=== PATIENT | female | born 1945 | race African-American/Black ===

== ENCOUNTER 2021-09-14 19:24 | Inpatient (IN) | payer BC ==
[~2021-09-14] VITALS: Ht 167.6 cm; Wt 89.8 kg
[2021-09-14] MEDS ORDERED: DOPAMINE 400MG/250ML PREMIX 250 ML IV ONE (20:00)
[2021-09-14] MEDS ORDERED: DOBUTAMINE 250MG PREMIX 250 ML IV ONE (20:00)
[2021-09-14 20:14] LABS: HEMATOCRIT. 34.4 % (36.0-48.0); HEMOGLOBIN. 11.1 g/dL (12.0-16.0); MEAN CORPUSCULAR HEMOGLOBIN 26.6 pg (28.0-32.0); MEAN CORPUSCULAR VOLUME 82.3 fL (81.0-99.0); MEAN PLATELET VOLUME 9.7 fl (7.4-10.4); PLATELET 295 x1000/uL (130-400); RED BLOOD CELL COUNT 4.18 mill/uL (4.2-5.4); RED CELL DISTRIBUTION WIDTH 20.8 % (11.6-14.6)
[2021-09-14 20:21] LABS: CHLORIDE 114 mEq/L (98-107)
[2021-09-14 20:24] LABS: INR 1.3; PARTIAL THROMBOPLASTIN TIME 27.6 sec (23.4-31.0); PROTHROMBIN TIME 13.4 sec (9.6-11.0)
[2021-09-14 20:59] LABS: PLATELET ESTIMATE NORMAL
[2021-09-14] MEDS ORDERED: METOCLOPRAMIDE HCL 10MG/2ML VIAL IV ONE (22:15)
[2021-09-14] MEDS ORDERED: ACETAMINOPHEN 325MG TABLET PO ONE (22:15)
[2021-09-14] MEDS ORDERED: ACETAMINOPHEN 325MG TABLET PO PRN (23:15)
[2021-09-14] MEDS ORDERED: DOPAMINE 400MG/250ML PREMIX 250 ML IV PRN (23:27)
[2021-09-14] MEDS ORDERED: ENOXAPARIN 30MG/0.3ML SYR SUBCUT SCH (23:36)
[2021-09-14] MEDS ORDERED: DEXT 5%/0.45% NACL 500ML 500 ML IV ONE (23:45)
[2021-09-15] MEDS: ONDANSETRON HCL 4MG/2ML INJ IV PRN ×3 (02:18→21:07)
[2021-09-15 06:19] LABS: BASOPHILS % 0.8 % (0.0-2.0); EOSINOPHILS % 0.3 % (0.0-5.0); HEMATOCRIT. 36.1 % (36.0-48.0); HEMOGLOBIN. 11.8 g/dL (12.0-16.0); LYMPHOCYTES % 11.3 % (20.0-50.0); MEAN CORPUSCULAR HEMOGLOBIN 26.9 pg (28.0-32.0); MEAN CORPUSCULAR VOLUME 82.6 fL (81.0-99.0); MEAN PLATELET VOLUME 9.7 fl (7.4-10.4); MONOCYTES % 11.5 % (2.0-8.0); NEUTROPHILS % 76.1 % (40.0-76.0); PLATELET 308 x1000/uL (130-400); RED BLOOD CELL COUNT 4.37 mill/uL (4.2-5.4)
[2021-09-15 07:04] LABS: VITAMIN B12 SERUM > 2000.0 pg/mL (211-911)
[2021-09-15] MEDS: FAMOTIDINE 20MG/2ML VIAL IV SCH (09:28)
[2021-09-15] MEDS: DOPAMINE 400MG/250ML PREMIX 250 ML IV PRN (09:55)
[2021-09-15] MEDS ORDERED: NOREPINEPHRINE 8MG/250ML PMX 250 ML IV PRN (10:45)
[2021-09-15] MEDS ORDERED: LIDOCAINE HCL 1% 10 MG/ML 10ML VIAL ONE (12:58)
[2021-09-15] MEDS ORDERED: ENOXAPARIN 100MG/ML SYR SUBCUT SCH (13:00)
[2021-09-15] MEDS: MAGNESIUM/ALUMINUM HYDROXIDE/SIMETHICONE 30ML UDC PO PRN ×2 (17:46→21:07)
[2021-09-15] MEDS ORDERED: PIPERACILLIN/TAZ 3.375G PREMIX 50 ML IV NR (22:01)
[2021-09-15] MEDS ORDERED: PIPERACILLIN/TAZOBACTAM 3.375G in DEXT 5% WATER 50ML IV NR (22:30)
[2021-09-15] MEDS: DEXT 5%/0.45% NACL 1000ML 1,000 ML IV SCH (23:35)
[2021-09-15 23:40] VITALS: BP 124/60
[2021-09-15 23:48] VITALS: BP 124/60
[2021-09-16] VITALS (22 sets, daily range): BP systolic 81–131; BP diastolic 43–96
[2021-09-16] MEDS ORDERED: NALOXONE HCL 0.4MG/ML VIAL IV PRN (02:30)
[2021-09-16] MEDS: HYDROCODONE/ACETAMINOPHEN 5/325MG TABLET PO PRN ×2 (02:33→20:20)
[2021-09-16] MEDS ORDERED: *PATIENT'S OWN MEDICATION STORAGE XX SCH (04:00)
[2021-09-16] MEDS: ONDANSETRON HCL 4MG/2ML INJ IV PRN (04:20)
[2021-09-16] MEDS: METOPROLOL TARTRATE 25MG TABLET PO SCH ×2 (05:16→09:00)
[2021-09-16] MEDS: PIPERACILLIN/TAZOBACTAM 3.375G in DEXT 5% WATER 50ML IV SCH ×3 (05:44→21:20)
[2021-09-16] MEDS: DEXT 5%/0.45% NACL 1000ML 1,000 ML IV SCH ×2 (06:06→12:48)
[2021-09-16] MEDS ORDERED: DILT180C85 PO (08:18)
[2021-09-16] MEDS ORDERED: FURO20TA4 PO (08:18)
[2021-09-16] MEDS ORDERED: HYDR-4001 PO (08:18)
[2021-09-16] MEDS ORDERED: FERR324T17 PO (08:18)
[2021-09-16] MEDS ORDERED: ALLO100T PO (08:18)
[2021-09-16] MEDS ORDERED: ATOR-2 PO (08:18)
[2021-09-16] MEDS ORDERED: POTA-9 PO (08:18)
[2021-09-16] MEDS ORDERED: PANT40TA51 PO (08:18)
[2021-09-16] MEDS ORDERED: METO-411 PO (08:18)
[2021-09-16] MEDS ORDERED: APIX5TAB PO (08:18)
[2021-09-16 08:51] LABS: MEAN CORPUSCULAR HEMOGLOBIN 27.3 pg (28.0-32.0); MEAN CORPUSCULAR VOLUME 85.4 fL (81.0-99.0); MEAN PLATELET VOLUME 10.4 fl (7.4-10.4); PLATELET 219 x1000/uL (130-400); RED BLOOD CELL COUNT 2.98 mill/uL (4.2-5.4); RED CELL DISTRIBUTION WIDTH 21.4 % (11.6-14.6)
[2021-09-16 08:58] LABS: HEMATOCRIT. 25.5 % (36.0-48.0); HEMOGLOBIN. 8.1 g/dL (12.0-16.0)
[2021-09-16 09:44] LABS: BG BASE EXCESS -2.2 mmol/L (-2.0-2.0); BG CARBOXYHEMOGLOBIN 0.2 % (0.5-1.5); BG DEOXYHEMOGLOBIN 2.3 % (0.0-5.0); BG FRACTION INSPIRED OXYGEN 21; BG HCO3 ACT 21.7 mmol/L (22.0-26.0); BG METHEMOGLOBIN 0.4 % (0.0-1.5); BG OXYGEN SATURATION 97.7 % (92.0-98.5); BG OXYHEMOGLOBIN 97.1 % (94.0-97.0); BG PCO2 33.5 mmHg (35.0-45.0); BG PO2 116.8 mmHg (75.0-100.0); BG SAMPLE SITE LEFT RADIAL; BG TOTAL HEMOGLOBIN 8.3 g/dL (12.0-18.0); BG VENT MODE ROOM AIR
[2021-09-16] MEDS: FAMOTIDINE 20MG/2ML VIAL IV SCH (09:45)
[2021-09-16] MEDS ORDERED: DOPAMINE 400MG/250ML PREMIX 250 ML IV ONE (10:00)
[2021-09-16] MEDS: DOPAMINE 400MG/250ML PREMIX 250 ML IV PRN ×2 (10:16→21:21)
[2021-09-16] MEDS: NOREPINEPHRINE 8 MG in DEXTROSE 5% WATER 250 ML IV PRN ×2 (11:56→21:49)
[2021-09-16 18:42] LABS: CLARITY URINE CLOUDY (CLEAR); COLOR URINE YELLOW (YELLOW); KETONES URINE TRACE (NEGATIVE); LEUKOCYTE ESTERASE URINE 2+ (NEGATIVE); NITRITE URINE NEGATIVE (NEGATIVE); OCCULT BLOOD URINE 3+ (NEGATIVE); PH URINE 5.5 (4.5-8.0); PROTEIN URINE 3+ (NEGATIVE)
[2021-09-16 18:54] LABS: PLATELET ESTIMATE NORMAL
[2021-09-16] MEDS: FLUCONAZOLE 200 MG/100ML BAG 100 ML IV SCH (18:56)
[2021-09-16 21:15] LABS: HEMATOCRIT 32.6 % (36.0-48.0); HEMOGLOBIN 10.8 g/dL (12.0-16.0)
[2021-09-17] VITALS (80 sets, daily range): BP systolic 58–138; BP diastolic 20–102
[2021-09-17] MEDS ORDERED: FLUCONAZOLE 200MG/100ML PREMIX IV SCH (01:00)
[2021-09-17] MEDS: HYDROCODONE/ACETAMINOPHEN 5/325MG TABLET PO PRN ×3 (02:29→16:52)
[2021-09-17 05:06] LABS: BASOPHILS % 0.2 % (0.0-2.0); HEMATOCRIT. 32.1 % (36.0-48.0); HEMOGLOBIN. 10.5 g/dL (12.0-16.0); LYMPHOCYTES % 9.9 % (20.0-50.0); MEAN CORPUSCULAR HEMOGLOBIN 27.5 pg (28.0-32.0); MEAN PLATELET VOLUME 10.1 fl (7.4-10.4); MONOCYTES % 6.8 % (2.0-8.0); NEUTROPHILS % 83.1 % (40.0-76.0); PLATELET 202 x1000/uL (130-400); RED BLOOD CELL COUNT 3.82 mill/uL (4.2-5.4); RED CELL DISTRIBUTION WIDTH 18.7 % (11.6-14.6)
[2021-09-17 05:11] LABS: CHLORIDE 105 mEq/L (98-107)
[2021-09-17 05:20] LABS: PHOSPHORUS 4.9 mg/dL (2.5-4.9)
[2021-09-17] MEDS ORDERED: PHENYLEPHRINE 50 MG in DEXT 5% WATER 245 ML IV PRN (08:30)
[2021-09-17] MEDS: PIPERACILLIN/TAZOBACTAM 3.375G in DEXT 5% WATER 50ML IV SCH ×2 (08:48→21:53)
[2021-09-17] MEDS: FAMOTIDINE 20MG/2ML VIAL IV SCH (08:48)
[2021-09-17] MEDS: DEXT 5%/0.45% NACL 1000ML 1,000 ML IV SCH (09:32)
[2021-09-17] MEDS: ONDANSETRON HCL 4MG/2ML INJ IV PRN (10:51)
[2021-09-17] MEDS ORDERED: AMIODARONE HCL 150 MG in DEXT 5% WATER 100 ML IV NR (11:30)
[2021-09-17] MEDS: AMIODARONE HCL 900 MG in DEXT 5% WATER 482 ML IV SCH (12:49)
[2021-09-17] MEDS: FLUCONAZOLE 200 MG/100ML BAG 100 ML IV SCH (16:51)
[2021-09-17] MEDS ORDERED: DIPHENHYDRAMINE 25MG CAPSULE PO PRN (18:00)
[2021-09-17] MEDS: SODIUM CHLORIDE 0.9% 1,000 ML IV SCH (18:59)
[2021-09-17] MEDS: MORPHINE SULFATE 2 MG/ML CPJ (NOT FOR IM USE) IV PRN ×2 (19:00→22:29)
[2021-09-17 19:14] LABS: HEPATITIS B SURFACE AB 416.5 mIU/mL
[2021-09-17 19:25] LABS: HEPATITIS B SURFACE ANTIGEN NEGATIVE
[2021-09-18] VITALS (101 sets, daily range): BP systolic 69–135; BP diastolic 44–102
[2021-09-18] MEDS: SODIUM CHLORIDE 0.9% 1,000 ML IV SCH ×2 (01:40→09:16)
[2021-09-18] MEDS: MORPHINE SULFATE 2 MG/ML CPJ (NOT FOR IM USE) IV PRN ×4 (04:05→18:25)
[2021-09-18 05:35] LABS: CHLORIDE 103 mEq/L (98-107); EOSINOPHILS % 0.2 % (0.0-5.0)
[2021-09-18 05:41] LABS: PHOSPHORUS 5.3 mg/dL (2.5-4.9)
[2021-09-18 05:48] LABS: BASOPHILS % 0.2 % (0.0-2.0); HEMATOCRIT. 26.7 % (36.0-48.0); HEMOGLOBIN. 8.9 g/dL (12.0-16.0); LYMPHOCYTES % 14.9 % (20.0-50.0); MEAN CORPUSCULAR HEMOGLOBIN 27.7 pg (28.0-32.0); MEAN CORPUSCULAR VOLUME 83.6 fL (81.0-99.0); MEAN PLATELET VOLUME 10.2 fl (7.4-10.4); MONOCYTES % 8.5 % (2.0-8.0); NEUTROPHILS % 76.2 % (40.0-76.0); PLATELET 166 x1000/uL (130-400); RED CELL DISTRIBUTION WIDTH 19.5 % (11.6-14.6)
[2021-09-18] MEDS ORDERED: LIDOCAINE HCL 1% 10 MG/ML 10ML VIAL ONE (08:39)
[2021-09-18] MEDS: PIPERACILLIN/TAZOBACTAM 3.375G in DEXT 5% WATER 50ML IV SCH ×2 (08:46→21:07)
[2021-09-18] MEDS: PANTOPRAZOLE SODIUM 40 MG/VIAL IV SCH (08:46)
[2021-09-18] MEDS: AMIODARONE HCL 900 MG in DEXT 5% WATER 482 ML IV SCH (16:07)
[2021-09-18] MEDS: FLUCONAZOLE 200 MG/100ML BAG 100 ML IV SCH (18:25)
[2021-09-19] VITALS (99 sets, daily range): BP systolic 63–146; BP diastolic 28–93
[2021-09-19] MEDS: MORPHINE SULFATE 2 MG/ML CPJ (NOT FOR IM USE) IV PRN ×2 (02:00→22:21)
[2021-09-19] MEDS: SODIUM CHLORIDE 0.9% 1,000 ML IV SCH (04:58)
[2021-09-19 05:51] LABS: BASOPHILS % 0.3 % (0.0-2.0); EOSINOPHILS % 0.6 % (0.0-5.0); HEMATOCRIT. 25.4 % (36.0-48.0); HEMOGLOBIN. 8.5 g/dL (12.0-16.0); LYMPHOCYTES % 13.7 % (20.0-50.0); MEAN CORPUSCULAR HEMOGLOBIN 28.2 pg (28.0-32.0); MEAN CORPUSCULAR VOLUME 84.3 fL (81.0-99.0); MEAN PLATELET VOLUME 9.9 fl (7.4-10.4); NEUTROPHILS % 76.4 % (40.0-76.0); PLATELET 164 x1000/uL (130-400); RED BLOOD CELL COUNT 3.02 mill/uL (4.2-5.4); RED CELL DISTRIBUTION WIDTH 19.4 % (11.6-14.6)
[2021-09-19 06:07] LABS: PHOSPHORUS 5.3 mg/dL (2.5-4.9)
[2021-09-19] MEDS: PIPERACILLIN/TAZOBACTAM 3.375G in DEXT 5% WATER 50ML IV SCH ×2 (09:16→21:30)
[2021-09-19] MEDS: PANTOPRAZOLE SODIUM 40 MG/VIAL IV SCH (09:16)
[2021-09-19] MEDS ORDERED: SODIUM POLYSTYRENE SULFONATE 15 G/60 ML BOT PO NR (09:45)
[2021-09-19] MEDS: ONDANSETRON HCL 4MG/2ML INJ IV PRN (14:46)
[2021-09-19] MEDS: FLUCONAZOLE 200 MG/100ML BAG 100 ML IV SCH (17:01)
[2021-09-19] MEDS: AMIODARONE HCL 200 MG TABLET PO SCH (21:30)
[2021-09-20] VITALS (45 sets, daily range): BP systolic 78–152; BP diastolic 33–84
[2021-09-20 05:53] LABS: BASOPHILS % 0.3 % (0.0-2.0); EOSINOPHILS % 0.3 % (0.0-5.0); LYMPHOCYTES % 7.8 % (20.0-50.0); MEAN CORPUSCULAR HEMOGLOBIN 28.2 pg (28.0-32.0); MEAN CORPUSCULAR VOLUME 84.9 fL (81.0-99.0); MEAN PLATELET VOLUME 9.5 fl (7.4-10.4); MONOCYTES % 9.8 % (2.0-8.0); NEUTROPHILS % 81.8 % (40.0-76.0); PLATELET 135 x1000/uL (130-400); RED BLOOD CELL COUNT 2.39 mill/uL (4.2-5.4); RED CELL DISTRIBUTION WIDTH 19.8 % (11.6-14.6)
[2021-09-20 06:27] LABS: PHOSPHORUS 4.5 mg/dL (2.5-4.9)
[2021-09-20 06:32] LABS: HEMATOCRIT. 20.3 % (36.0-48.0); HEMOGLOBIN. 6.7 g/dL (12.0-16.0)
[2021-09-20 07:26] LABS: BASOPHILS % 0.1 % (0.0-2.0); EOSINOPHILS % 0.5 % (0.0-5.0); LYMPHOCYTES % 8.5 % (20.0-50.0); MEAN CORPUSCULAR HEMOGLOBIN 28.6 pg (28.0-32.0); MEAN CORPUSCULAR VOLUME 85.5 fL (81.0-99.0); MEAN PLATELET VOLUME 9.3 fl (7.4-10.4); MONOCYTES % 10.1 % (2.0-8.0); NEUTROPHILS % 80.8 % (40.0-76.0); PLATELET 138 x1000/uL (130-400); RED CELL DISTRIBUTION WIDTH 19.4 % (11.6-14.6)
[2021-09-20 07:42] LABS: HEMATOCRIT. 20.5 % (36.0-48.0); HEMOGLOBIN. 6.9 g/dL (12.0-16.0)
[2021-09-20 08:00] LABS: PHOSPHORUS 4.5 mg/dL (2.5-4.9)
[2021-09-20] MEDS ORDERED: ACETAMINOPHEN 325MG TABLET PO SCH (08:15)
[2021-09-20] MEDS: PIPERACILLIN/TAZOBACTAM 3.375G in DEXT 5% WATER 50ML IV SCH ×2 (08:56→21:14)
[2021-09-20] MEDS: AMIODARONE HCL 200 MG TABLET PO SCH ×2 (08:56→21:14)
[2021-09-20] MEDS: PANTOPRAZOLE SODIUM 40 MG/VIAL IV SCH (08:56)
[2021-09-20] MEDS: MORPHINE SULFATE 2 MG/ML CPJ (NOT FOR IM USE) IV PRN (12:26)
[2021-09-20] MEDS: FLUCONAZOLE 200 MG/100ML BAG 100 ML IV SCH (16:40)
[2021-09-21] VITALS (9 sets, daily range): BP systolic 100–118; BP diastolic 53–68
[2021-09-21 06:29] LABS: CHLORIDE 106 mEq/L (98-107)
[2021-09-21 06:36] LABS: PHOSPHORUS 4.5 mg/dL (2.5-4.9)
[2021-09-21 06:47] LABS: BASOPHILS % 0.3 % (0.0-2.0); EOSINOPHILS % 2.5 % (0.0-5.0); HEMATOCRIT. 24.4 % (36.0-48.0); HEMOGLOBIN. 8.3 g/dL (12.0-16.0); LYMPHOCYTES % 11.1 % (20.0-50.0); MEAN CORPUSCULAR HEMOGLOBIN 29.2 pg (28.0-32.0); MEAN CORPUSCULAR VOLUME 85.4 fL (81.0-99.0); MEAN PLATELET VOLUME 9.8 fl (7.4-10.4); MONOCYTES % 10.4 % (2.0-8.0); NEUTROPHILS % 75.7 % (40.0-76.0); PLATELET 123 x1000/uL (130-400); RED BLOOD CELL COUNT 2.86 mill/uL (4.2-5.4); RED CELL DISTRIBUTION WIDTH 18.7 % (11.6-14.6)
[2021-09-21] MEDS: AMIODARONE HCL 200 MG TABLET PO SCH ×2 (10:14→20:49)
[2021-09-21] MEDS: FAMOTIDINE 20MG/2ML VIAL IV SCH (10:14)
[2021-09-21] MEDS: DOCUSATE SODIUM 100MG CAPSULE PO PRN (17:30)
[2021-09-21] MEDS: FLUCONAZOLE 200 MG/100ML BAG 100 ML IV SCH (17:30)
[2021-09-22] VITALS (7 sets, daily range): BP systolic 120–137; BP diastolic 60–80
[2021-09-22] MEDS: FAMOTIDINE 20MG/2ML VIAL IV SCH (09:34)
[2021-09-22] MEDS: DOCUSATE SODIUM 100MG CAPSULE PO PRN (09:34)
[2021-09-22] MEDS: AMIODARONE HCL 200 MG TABLET PO SCH ×2 (09:34→09:42)
[2021-09-22 09:39] LABS: BASOPHILS % 0.5 % (0.0-2.0); EOSINOPHILS % 2.9 % (0.0-5.0); HEMATOCRIT. 25.2 % (36.0-48.0); HEMOGLOBIN. 8.5 g/dL (12.0-16.0); MEAN CORPUSCULAR HEMOGLOBIN 29.1 pg (28.0-32.0); MEAN CORPUSCULAR VOLUME 85.8 fL (81.0-99.0); MEAN PLATELET VOLUME 9.5 fl (7.4-10.4); MONOCYTES % 8.9 % (2.0-8.0); NEUTROPHILS % 74.7 % (40.0-76.0); PLATELET 130 x1000/uL (130-400); RED BLOOD CELL COUNT 2.93 mill/uL (4.2-5.4)
[2021-09-23] MEDS ORDERED: FAMOTIDINE 20MG TABLET PO SCH (09:00)
== END 2021-09-22 23:06 | disposition short-term general hospital (02) | DRG 871 ==
LOC: ER 19:24 → MICUSO 21:57 → EDBEDREQ 22:06 → EDBEDREQTM 22:06 → 3WST 09-15 22:06 → MICUSO 09-17 00:23 → 8WST 09-20 11:00
PROVIDERS: ADMIT Internal Medicine Pulmonary Disease; ATTEND Internal Medicine Pulmonary Disease
PROC: 5A2204Z Restoration of Cardiac Rhythm, Single (ICD-10-PCS; 2021-09-14)
PROC: 5A12012 Performance of Cardiac Output, Single, Manual (ICD-10-PCS; 2021-09-14)
PROC: 02HV33Z Insertion of Infusion Device into Superior Vena Cava, Percutaneous Approach (ICD-10-PCS; principal; 2021-09-15)
PROC: B548ZZA Ultrasonography of Superior Vena Cava, Guidance (ICD-10-PCS; 2021-09-15)
PROC: 30233N1 Transfusion of Nonautologous Red Blood Cells into Peripheral Vein, Percutaneous Approach (ICD-10-PCS; 2021-09-16)
PROC: 02HV33Z Insertion of Infusion Device into Superior Vena Cava, Percutaneous Approach (ICD-10-PCS; 2021-09-18)
PROC: B548ZZA Ultrasonography of Superior Vena Cava, Guidance (ICD-10-PCS; 2021-09-18)
PROC: 5A1D70Z Performance of Urinary Filtration, Intermittent, Less than 6 Hours Per Day (ICD-10-PCS; 2021-09-18)
DX: A41.9 Sepsis, unspecified organism (principal); N17.0 Acute kidney failure with tubular necrosis; I50.33 Acute on chronic diastolic (congestive) heart failure; R57.8 Other shock; E44.1 Mild protein-calorie malnutrition; E87.0 Hyperosmolality and hypernatremia; I13.0 Hypertensive heart and chronic kidney disease with heart failure and stage 1 through stage 4 chronic kidney disease, or unspecified chronic kidney disease; I48.11 Longstanding persistent atrial fibrillation; N13.6 Pyonephrosis; E78.5 Hyperlipidemia, unspecified; I73.9 Peripheral vascular disease, unspecified; N18.32 Chronic kidney disease, stage 3b; E87.8 Other disorders of electrolyte and fluid balance, not elsewhere classified; D64.9 Anemia, unspecified; E78.00 Pure hypercholesterolemia, unspecified; Z96.643 Presence of artificial hip joint, bilateral; G62.9 Polyneuropathy, unspecified; K21.9 Gastro-esophageal reflux disease without esophagitis; M19.90 Unspecified osteoarthritis, unspecified site; R73.03 Prediabetes; R74.01 Elevation of levels of liver transaminase levels; F03.90 Unspecified dementia, unspecified severity, without behavioral disturbance, psychotic disturbance, mood disturbance, and anxiety; M10.9 Gout, unspecified; I49.5 Sick sinus syndrome; S91.109A Unspecified open wound of unspecified toe(s) without damage to nail, initial encounter; Z96.653 Presence of artificial knee joint, bilateral; X58.XXXA Exposure to other specified factors, initial encounter; Z20.822 Contact with and (suspected) exposure to COVID-19; N94.89 Other specified conditions associated with female genital organs and menstrual cycle; Z79.899 Other long term (current) drug therapy; Z79.01 Long term (current) use of anticoagulants; Z86.73 Personal history of transient ischemic attack (TIA), and cerebral infarction without residual deficits; Z82.49 Family history of ischemic heart disease and other diseases of the circulatory system; Z90.710 Acquired absence of both cervix and uterus; Y93.89 Activity, other specified; Y92.89 Other specified places as the place of occurrence of the external cause; Y99.8 Other external cause status; Z88.8 Allergy status to other drugs, medicaments and biological substances; Z68.32 Body mass index [BMI] 32.0-32.9, adult; R19.09 Other intra-abdominal and pelvic swelling, mass and lump
CPT/HCPCS: 36415; 36556; 36600; 71045; 74176; 76857; 76937; 80048; 80053; 81003; 82375; 82378; 82607; 82805; 83036; 83540; 83550; 83605; 83735; 83880; 84100; 84443; 84484; 85014; 85018; 85025; 86705; 86706; 86709; 86803; 86850; 86900; 86920; 87340; 87426; 93005; 93306; 93923; 93970; 97162; 99291; C1725; C1752; C9113; J0282; J1250; J1265; J1450; J1650; J2270; J2370; J2405; J2543; J2765; J3490; J7030; J7040; J7060; P9016; A4315

== ENCOUNTER 2023-01-11 20:03 | Inpatient (IN) | payer BC, OTHER ==
[~2023-01-11] VITALS: Ht 167.6 cm; Wt 83.7 kg
[~2023-01-11 20:03] MED LIST: ALLO100T PO; APIX5TAB PO; ATOR-2 PO; DILT180C85 PO; FERR324T17 PO; FURO20TA4 PO; HYDR-4001 PO; METO-411 PO; PANT40TA51 PO; POTA-203 PO
[2023-01-11] MEDS ORDERED: PIPERACILLIN/TAZ 3.375G PREMIX 50 ML IV ONE (20:15)
[2023-01-11] MEDS ORDERED: SODIUM CHLORIDE 0.9% 1000ML BAG (SEPSIS BOLUS) IV ONE (20:15)
[2023-01-11] MEDS ORDERED: VANCOMYCIN 1G PREMIX 200 ML IV ONE (20:15)
[2023-01-11] MEDS ORDERED: ATROPINE SULFATE 0.1MG/ML 10ML DISP.SYRIN IV ONE (20:45)
[2023-01-11] MEDS ORDERED: VANCOMYCIN 1G PREMIX 200 ML IV NR (21:15)
[2023-01-11] MEDS ORDERED: PIPERACILLIN/TAZ 3.375G PREMIX 50 ML IV NR (21:15)
[2023-01-11] MEDS ORDERED: DOPAMINE 400MG/250ML PREMIX 250 ML IV ONE (21:15)
[2023-01-11 21:35] LABS: BASOPHILS % 0.5 % (0.0-2.0); EOSINOPHILS % 4.3 % (0.0-5.0); HEMATOCRIT. 39.5 % (36.0-48.0); HEMOGLOBIN. 12.5 g/dL (12.0-16.0); MEAN CORPUSCULAR HEMOGLOBIN 28.4 pg (28.0-32.0); MEAN CORPUSCULAR VOLUME 89.4 fL (81.0-99.0); MONOCYTES % 12.2 % (2.0-8.0); PLATELET 231 x1000/uL (130-400); RED BLOOD CELL COUNT 4.41 mill/uL (4.2-5.4); RED CELL DISTRIBUTION WIDTH 16.7 % (11.6-14.6)
[2023-01-11 21:40] LABS: CHLORIDE 108 mEq/L (98-107)
[2023-01-11 21:42] LABS: INR 1.3; PARTIAL THROMBOPLASTIN TIME 34.7 sec (23.4-31.0); PROTHROMBIN TIME 13.5 sec (9.6-11.0)
[2023-01-11] MEDS: DOPAMINE 400MG/250ML PREMIX 250 ML IV SCH (22:11)
[2023-01-11 23:32] LABS: CLARITY URINE CLOUDY (CLEAR); COLOR URINE YELLOW (YELLOW); KETONES URINE NEGATIVE (NEGATIVE); LEUKOCYTE ESTERASE URINE 3+ (NEGATIVE); NITRITE URINE POSITIVE (NEGATIVE); OCCULT BLOOD URINE 2+ (NEGATIVE); PH URINE 5.5 (4.5-8.0); PROTEIN URINE 1+ (NEGATIVE); UROBILINOGEN URINE 0.2 E.U./dL (0.2-1.0)
[2023-01-12] VITALS (57 sets, daily range): BP systolic 80–182; BP diastolic 42–84
[2023-01-12] MEDS ORDERED: ONDANSETRON HCL 4MG/2ML INJ IV PRN (05:00)
[2023-01-12] MEDS ORDERED: GUAIFENESIN 200MG/10ML SUGAR FREE UDC PO PRN (05:00)
[2023-01-12] MEDS ORDERED: MAGNESIUM/ALUMINUM HYDROXIDE/SIMETHICONE 30ML UDC PO PRN (05:00)
[2023-01-12] MEDS ORDERED: ACETAMINOPHEN 325MG TABLET PO PRN (05:00)
[2023-01-12] MEDS ORDERED: IPRATROPIUM/ALBUTEROL 0.5-3(2.5)MG/3ML NEB NEB PRN (05:00)
[2023-01-12] MEDS ORDERED: DOCUSATE SODIUM 100MG CAPSULE PO PRN (05:00)
[2023-01-12] MEDS: ACETAMINOPHEN 325MG TABLET PO PRN ×2 (06:07→22:57)
[2023-01-12] MEDS: PIPERACILLIN/TAZOBACTAM 3.375 G in DEXTROSE 5% WATER 50 ML IV SCH ×2 (06:12→14:08)
[2023-01-12] MEDS: SODIUM CHLORIDE 0.9% 1,000 ML IV SCH ×2 (06:33→22:20)
[2023-01-12] MEDS: POTASSIUM CHLORIDE 10MEQ TABLET SR PO SCH (09:00)
[2023-01-12] MEDS: GABAPENTIN 300MG CAPSULE PO SCH ×2 (09:00→16:41)
[2023-01-12] MEDS ORDERED: APIXABAN 5 MG TABLET PO SCH (09:00)
[2023-01-12] MEDS: FUROSEMIDE 20MG TABLET PO SCH (10:02)
[2023-01-12] MEDS: DOPAMINE 400MG/250ML PREMIX 250 ML IV SCH (10:33)
[2023-01-12 12:27] LABS: HEMATOCRIT 38.8 % (36.0-48.0); HEMOGLOBIN 12.7 g/dL (12.0-16.0); MEAN CORPUSCULAR VOLUME 88.9 fL (81.0-99.0); PLATELET 230 x1000/uL (130-400); RED BLOOD CELL COUNT 4.37 mill/uL (4.2-5.4); RED CELL DISTRIBUTION WIDTH 16.7 % (11.6-14.6)
[2023-01-12 12:50] LABS: CHLORIDE 107 mEq/L (98-107)
[2023-01-12 12:59] LABS: PHOSPHORUS 3.7 mg/dL (2.5-4.9)
[2023-01-12 13:19] LABS: VITAMIN B12 SERUM >2000 pg/mL pg/mL (211-911)
[2023-01-12] MEDS: FAMOTIDINE 20MG/2ML VIAL IV SCH (14:08)
[2023-01-12] MEDS: ALLOPURINOL 100 MG TABLET PO SCH (16:38)
[2023-01-12] MEDS: ATORVASTATIN CALCIUM 40MG TABLET PO SCH (17:00)
[2023-01-12] MEDS: FERROUS SULFATE 325MG TABLET PO SCH (22:20)
[2023-01-13] VITALS (68 sets, daily range): BP systolic 63–167; BP diastolic 14–127
[2023-01-13] MEDS: PIPERACILLIN/TAZOBACTAM 3.375 G in DEXTROSE 5% WATER 50 ML IV SCH ×4 (01:16→22:35)
[2023-01-13] MEDS ORDERED: VANCOMYCIN 750MG PREMIX 150 ML IV SCH ×3 (04:00→10:00)
[2023-01-13 06:30] LABS: BASOPHILS % 0.9 % (0.0-2.0); HEMATOCRIT. 39.7 % (36.0-48.0); MEAN CORPUSCULAR HEMOGLOBIN 28.8 pg (28.0-32.0); MEAN CORPUSCULAR VOLUME 88.3 fL (81.0-99.0); MEAN PLATELET VOLUME 9.5 fl (7.4-10.4); MONOCYTES % 13.6 % (2.0-8.0); NEUTROPHILS % 54.5 % (40.0-76.0); PLATELET 231 x1000/uL (130-400); RED CELL DISTRIBUTION WIDTH 16.9 % (11.6-14.6)
[2023-01-13 06:36] LABS: CHLORIDE 108 mEq/L (98-107)
[2023-01-13 06:56] LABS: HDL CHOLESTEROL 91 mg/dL (40-59); LDL CHOLESTEROL 71 mg/dL (5-100); T4 FREE 1.15 ng/dL (0.76-1.46)
[2023-01-13] MEDS ORDERED: DOPAMINE 400MG/250ML PREMIX 250 ML IV PRN (07:45)
[2023-01-13] MEDS ORDERED: GENTAMICIN 80MG in SODIUM CHLORIDE IRRIG SOLN 500ML IR NR (08:30)
[2023-01-13] MEDS: GABAPENTIN 300MG CAPSULE PO SCH ×2 (09:00→16:03)
[2023-01-13] MEDS: FAMOTIDINE 20MG/2ML VIAL IV SCH (09:21)
[2023-01-13] MEDS: ALLOPURINOL 100 MG TABLET PO SCH (09:22)
[2023-01-13] MEDS: POTASSIUM CHLORIDE 10MEQ TABLET SR PO SCH (09:22)
[2023-01-13] MEDS: SODIUM CHLORIDE 0.9% 1,000 ML IV SCH ×2 (09:22→22:36)
[2023-01-13] MEDS: FUROSEMIDE 20MG TABLET PO SCH (09:22)
[2023-01-13] MEDS ORDERED: GENTAMICIN/NS IRRIGATION 500 ML IR NR (10:45)
[2023-01-13] MEDS ORDERED: GENTAMICIN SULF 40MG/ML 2ML VIAL ONE (11:39)
[2023-01-13] MEDS ORDERED: IODIXANOL 320MG/ML 100 ML BOTTLE IV ONE (12:33)
[2023-01-13] MEDS ORDERED: FENTANYL CITRATE/PF 50MCG/ML 2ML VIAL ONE ×2 (12:59→13:57)
[2023-01-13] MEDS ORDERED: MIDAZOLAM HCL 2 MG/2 ML VIAL ONE (12:59)
[2023-01-13] MEDS ORDERED: CEFAZOLIN SODIUM 1000MG/VIAL ONE (13:07)
[2023-01-13] MEDS ORDERED: CEFAZOLIN 1000MG PREMIX 50 ML IV ONE ×2 (13:08→14:24)
[2023-01-13] MEDS ORDERED: LIDOCAINE HCL 1% 20ML VIAL (Pyxis) INJ ONE ×2 (13:13)
[2023-01-13] MEDS ORDERED: HYDROCODONE/ACETAMINOPHEN 7.5/325MG TABLET PO PRN (15:45)
[2023-01-13] MEDS: ACETAMINOPHEN 325MG TABLET PO PRN (15:58)
[2023-01-13] MEDS ORDERED: NALOXONE HCL 0.4MG/ML VIAL IV PRN (16:00)
[2023-01-13] MEDS: ATORVASTATIN CALCIUM 40MG TABLET PO SCH (16:03)
[2023-01-13] MEDS: HYDROCODONE/ACETAMINOPHEN 7.5/325MG TABLET PO PRN (16:48)
[2023-01-13] MEDS: FERROUS SULFATE 325MG TABLET PO SCH (21:19)
[2023-01-13] MEDS ORDERED: CEFAZOLIN SODIUM 1000MG/VIAL IV SCH (22:00)
[2023-01-13] MEDS: CLOTRIMAZOLE 1% CREAM 15GM TOP SCH (22:36)
[2023-01-14] VITALS (46 sets, daily range): BP systolic 92–164; BP diastolic 27–139
[2023-01-14] MEDS: HYDROCODONE/ACETAMINOPHEN 7.5/325MG TABLET PO PRN ×2 (00:37→20:37)
[2023-01-14] MEDS: PIPERACILLIN/TAZOBACTAM 3.375 G in DEXTROSE 5% WATER 50 ML IV SCH ×3 (06:14→23:11)
[2023-01-14] MEDS: CLOTRIMAZOLE 1% CREAM 15GM TOP SCH ×3 (06:23→23:11)
[2023-01-14] MEDS: ALLOPURINOL 100 MG TABLET PO SCH (09:18)
[2023-01-14] MEDS: FUROSEMIDE 20MG TABLET PO SCH (09:18)
[2023-01-14] MEDS: FAMOTIDINE 20MG/2ML VIAL IV SCH (09:18)
[2023-01-14] MEDS: POTASSIUM CHLORIDE 10MEQ TABLET SR PO SCH (09:18)
[2023-01-14] MEDS: GABAPENTIN 300MG CAPSULE PO SCH ×2 (09:18→17:00)
[2023-01-14 11:15] LABS: HEMATOCRIT. 34.3 % (36.0-48.0); HEMOGLOBIN. 11.1 g/dL (12.0-16.0); MEAN CORPUSCULAR HEMOGLOBIN 28.8 pg (28.0-32.0); MEAN CORPUSCULAR VOLUME 89.1 fL (81.0-99.0); MEAN PLATELET VOLUME 9.6 fl (7.4-10.4); PLATELET 192 x1000/uL (130-400); RED BLOOD CELL COUNT 3.85 mill/uL (4.2-5.4); RED CELL DISTRIBUTION WIDTH 16.9 % (11.6-14.6)
[2023-01-14] MEDS: SODIUM CHLORIDE 0.9% 1,000 ML IV SCH (11:35)
[2023-01-14 11:59] LABS: PLATELET ESTIMATE NORMAL
[2023-01-14] MEDS: ATORVASTATIN CALCIUM 40MG TABLET PO SCH (17:55)
[2023-01-14] MEDS: FERROUS SULFATE 325MG TABLET PO SCH (21:35)
[2023-01-15] VITALS (21 sets, daily range): BP systolic 87–143; BP diastolic 59–95
[2023-01-15] MEDS: SODIUM CHLORIDE 0.9% 1,000 ML IV SCH ×2 (00:18→22:32)
[2023-01-15 07:15] LABS: HEMATOCRIT. 35.2 % (36.0-48.0); HEMOGLOBIN. 11.6 g/dL (12.0-16.0); MEAN CORPUSCULAR HEMOGLOBIN 29.6 pg (28.0-32.0); MEAN CORPUSCULAR VOLUME 89.9 fL (81.0-99.0); MEAN PLATELET VOLUME 9.7 fl (7.4-10.4); PLATELET 149 x1000/uL (130-400); RED BLOOD CELL COUNT 3.92 mill/uL (4.2-5.4); RED CELL DISTRIBUTION WIDTH 17.3 % (11.6-14.6)
[2023-01-15] MEDS: CLOTRIMAZOLE 1% CREAM 15GM TOP SCH ×2 (07:18→14:00)
[2023-01-15] MEDS: PIPERACILLIN/TAZOBACTAM 3.375 G in DEXTROSE 5% WATER 50 ML IV SCH ×3 (07:18→22:18)
[2023-01-15] MEDS: ALLOPURINOL 100 MG TABLET PO SCH (09:00)
[2023-01-15] MEDS: GABAPENTIN 300MG CAPSULE PO SCH ×2 (09:00→17:57)
[2023-01-15] MEDS: FUROSEMIDE 20MG TABLET PO SCH (09:39)
[2023-01-15] MEDS: FAMOTIDINE 20MG/2ML VIAL IV SCH (09:39)
[2023-01-15] MEDS: POTASSIUM CHLORIDE 10MEQ TABLET SR PO SCH (09:39)
[2023-01-15 09:57] LABS: PLATELET ESTIMATE NORMAL
[2023-01-15] MEDS: ATORVASTATIN CALCIUM 40MG TABLET PO SCH (17:56)
[2023-01-15] MEDS: FERROUS SULFATE 325MG TABLET PO SCH (22:18)
[2023-01-15] MEDS: APIXABAN 5 MG TABLET PO SCH (22:18)
[2023-01-16] VITALS (7 sets, daily range): BP systolic 124–184; BP diastolic 64–104
[2023-01-16] MEDS: PIPERACILLIN/TAZOBACTAM 3.375 G in DEXTROSE 5% WATER 50 ML IV SCH ×2 (06:03→14:33)
[2023-01-16] MEDS: APIXABAN 5 MG TABLET PO SCH (06:04)
[2023-01-16] MEDS ORDERED: HYDRALAZINE 20MG/ML VIAL IV PRN (06:30)
[2023-01-16] MEDS ORDERED: CLONIDINE 0.1MG TABLET PO PRN (07:00)
[2023-01-16] MEDS: POTASSIUM CHLORIDE 10MEQ TABLET SR PO SCH (09:15)
[2023-01-16] MEDS: ALLOPURINOL 100 MG TABLET PO SCH (09:15)
[2023-01-16] MEDS: FAMOTIDINE 20MG/2ML VIAL IV SCH (09:15)
[2023-01-16] MEDS: FUROSEMIDE 20MG TABLET PO SCH (09:15)
[2023-01-16] MEDS: GABAPENTIN 300MG CAPSULE PO SCH ×2 (09:16→17:00)
[2023-01-16] MEDS ORDERED: DILTIAZEM HCL 180MG CAPSULE CD 24HR PO SCH (09:30)
[2023-01-16] MEDS ORDERED: ALBUTEROL (0.083%) 2.5MG/3ML NEB HHN PRN (10:45)
[2023-01-16] MEDS ORDERED: IPRATROPIUM BROMIDE (0.02%) 0.5MG/2.5ML NEB HHN PRN (10:45)
[2023-01-16] MEDS: ATORVASTATIN CALCIUM 40MG TABLET PO SCH (17:19)
[2023-01-17] MEDS ORDERED: FUROSEMIDE 40MG TABLET PO SCH (09:00)
== END 2023-01-16 20:00 | disposition home health service (06) | DRG 242 ==
LOC: ER 20:03 → EDBEDREQTM 23:20 → EDBEDREQ 23:20 → MICUSO 23:25 → CVICU 01-12 09:38 → 7WST 01-15 12:05
PROVIDERS: ADMIT Hospitalist; ATTEND Hospitalist
PROC: 0JH606Z Insertion of Pacemaker, Dual Chamber into Chest Subcutaneous Tissue and Fascia, Open Approach (ICD-10-PCS; principal; 2023-01-13)
PROC: 02H63JZ Insertion of Pacemaker Lead into Right Atrium, Percutaneous Approach (ICD-10-PCS; 2023-01-13)
PROC: 02HK3JZ Insertion of Pacemaker Lead into Right Ventricle, Percutaneous Approach (ICD-10-PCS; 2023-01-13)
DX: I49.5 Sick sinus syndrome (principal); A41.9 Sepsis, unspecified organism; I50.33 Acute on chronic diastolic (congestive) heart failure; J96.00 Acute respiratory failure, unspecified whether with hypoxia or hypercapnia; N18.6 End stage renal disease; E87.20 Acidosis, unspecified; I24.8 Other forms of acute ischemic heart disease; N17.9 Acute kidney failure, unspecified; N39.0 Urinary tract infection, site not specified; I13.2 Hypertensive heart and chronic kidney disease with heart failure and with stage 5 chronic kidney disease, or end stage renal disease; I48.20 Chronic atrial fibrillation, unspecified; D72.819 Decreased white blood cell count, unspecified; E78.00 Pure hypercholesterolemia, unspecified; M10.9 Gout, unspecified; I73.9 Peripheral vascular disease, unspecified; G60.9 Hereditary and idiopathic neuropathy, unspecified; B96.89 Other specified bacterial agents as the cause of diseases classified elsewhere; M19.90 Unspecified osteoarthritis, unspecified site; Z20.822 Contact with and (suspected) exposure to COVID-19; Z96.643 Presence of artificial hip joint, bilateral; Z96.659 Presence of unspecified artificial knee joint; Z79.01 Long term (current) use of anticoagulants; Z95.0 Presence of cardiac pacemaker; Z88.8 Allergy status to other drugs, medicaments and biological substances; I25.2 Old myocardial infarction; Z74.01 Bed confinement status; Z79.899 Other long term (current) drug therapy; Z86.73 Personal history of transient ischemic attack (TIA), and cerebral infarction without residual deficits; Z90.710 Acquired absence of both cervix and uterus; Z93.6 Other artificial openings of urinary tract status
CPT/HCPCS: 33208; 36415; 71045; 75820; 80048; 80053; 80061; 81003; 82607; 82746; 83036; 83605; 83615; 83735; 83880; 84100; 84145; 84439; 84443; 84481; 84484; 85025; 85027; 87077; 87186; 87426; 93005; 93306; 93970; 97162; 97167; 97535; 99291; A4565; C1785; C1893; C1898; C9803; J0461; J0690; J1265; J1580; J2250; J2543; J3010; J3370; J3490; J7030; J7060; Q9967

== ENCOUNTER 2023-09-10 08:59 | Emergency (ER) | payer BC ==
[~2023-09-10] VITALS: Ht 170.2 cm; Wt 91.0 kg
[~2023-09-10 08:59] MED LIST changes: +DILT180C76 PO; -DILT180C85 PO; +NITR-87 MT
[2023-09-10 09:06] VITALS: O2SAT 100
[2023-09-10] MEDS ORDERED: AZITHROMYCIN 250 MG in DEXT 5% WATER 250 ML IV SCH (10:45)
[2023-09-10] MEDS ORDERED: CEFTRIAXONE 1GM PREMIX 50 ML IV ONE (10:45)
[2023-09-10 11:01] LABS: HEMATOCRIT. 35.1 % (36.0-48.0); HEMOGLOBIN. 11.2 g/dL (12.0-16.0); MEAN CORPUSCULAR HEMOGLOBIN 28.1 pg (28.0-32.0); MEAN CORPUSCULAR VOLUME 87.8 fL (81.0-99.0); MEAN PLATELET VOLUME 9.8 fl (7.4-10.4); PLATELET 185 x1000/uL (130-400); RED BLOOD CELL COUNT 3.99 mill/uL (4.2-5.4); RED CELL DISTRIBUTION WIDTH 16.1 % (11.6-14.6)
[2023-09-10 11:11] LABS: CHLORIDE 115 mEq/L (98-107); INDEX HEMOLYSI 1 (1-3); INDEX ICTERIC 1 (1-4); INDEX LIPEMIC 1 (1-3); POTASSIUM 3.6 mEq/L (3.5-5.1); SODIUM 146 mEq/L (136-145)
[2023-09-10 11:12] LABS: DIFFERENTIAL COMMENT 1
[2023-09-10 11:20] LABS: ALANINE AMINOTRANSFERASE 19 IU/L (13-61); ASPARTATE AMINOTRANSFERASE 19 IU/L (15-37); CALCIUM 8.9 mg/dL (8.5-10.1); CARBON DIOXIDE 26 mEq/L (21-32); CREATININE 1.8 mg/dL (0.6-1.3); GLUCOSE 108 mg/dL (70-105); NT PRO B-TYPE NATRIURETIC PEP 4836 pg/mL (5-125); TROPONIN I HIGH SENSITIVITY 50 ng/L (<54); UREA NITROGEN BLOOD 57 mg/dL (7-21)
[2023-09-10 11:57] LABS: ANISOCYTOSIS 1+; PLATELET ESTIMATE NORMAL
[2023-09-10 14:30] VITALS: TEMP 98.2
[2023-09-10 16:10] LABS: TROPONIN I HIGH SENSITIVITY 47 ng/L (<54)
[2023-09-10 16:30] VITALS: BP 122/77; PULSE 54; RESP 15
== END 2023-09-10 18:30 | disposition short-term general hospital (02) ==
LOC: ER 09:09
DX: A41.9 Sepsis, unspecified organism (principal); J18.9 Pneumonia, unspecified organism; I11.0 Hypertensive heart disease with heart failure; I50.9 Heart failure, unspecified; J44.9 Chronic obstructive pulmonary disease, unspecified; E78.00 Pure hypercholesterolemia, unspecified; Z86.73 Personal history of transient ischemic attack (TIA), and cerebral infarction without residual deficits; Z98.890 Other specified postprocedural states
CPT/HCPCS: 36415; 71045; 80053; 82962; 83605; 83880; 84484; 85025; 93005; 96365; 96368; 99285; C1893; J0456; J0696; J7060